=== PATIENT | male | born 1960 | race Caucasian/White ===

== ENCOUNTER → 2020-12-13 15:24 | Outpatient (BNVA) | payer BC, SELFPAY | PROVIDERS: PCP Internal Medicine; Visit Provider Urology ==

== ENCOUNTER → 2021-12-31 13:55 | Outpatient (BNVA) | payer OTHER, SELFPAY | PROVIDERS: PCP Internal Medicine; Visit Provider Urology | DX: N40.1 Benign prostatic hyperplasia with lower urinary tract symptoms (principal); N13.8 Other obstructive and reflux uropathy; R39.12 Poor urinary stream; N52.9 Male erectile dysfunction, unspecified | CPT/HCPCS: 51798; 99212 ==

== ENCOUNTER 2023-03-11 08:28 | Outpatient (REF) | payer OTHER, SELFPAY ==
[2023-03-12 09:52] LABS: Urine Cytology See Pathology rpt
== END 2023-03-11 08:29 | disposition home or self-care (01) ==
LOC: HO.LAB 08:28
PROVIDERS: PCP Internal Medicine; Visit Provider Nurse Practitioner Family
DX: R31.29 Other microscopic hematuria (principal); R39.12 Poor urinary stream; N32.0 Bladder-neck obstruction; N52.9 Male erectile dysfunction, unspecified
CPT/HCPCS: 51798; 88112

== ENCOUNTER 2024-05-03 08:21 | Outpatient (AMB) | payer OTHER, SELFPAY ==
--- NOTE | 2024-05-03 08:28 | A.OFFVIS_ITS ---
Intake Visit Reasons: 1y/labs Intake Note: Patient presents for follow up on: Erectile Dysfunction, Weak Urinary System, and PSA lab results PSA Results: 1.98 Urology Medications: Terazosin, Tadalafil Antibiotic Allergy: None Blood Thinner: None PVR: 10ml's Microsoft Windows Engineer Required: No Accompanied by: Self / Same As Patient Allergies phenytoin [Dilantin] Allergy (Unknown, Verified 05/03/24 19:55) Unknown Medication List - Last Reconciled 05/03/24 by KWASI Lindo-ALANNAH atorvastatin 40 mg PO BEDTIME duloxetine 30 mg PO DAILY furosemide 20 mg PO DAILY latanoprost 0.005% 1 drp ophthalmic (eye) DAILY metoprolol succinate ER 25 mg PO DAILY metoprolol tartrate 25 mg PO DAILY tadalafil 10 - 20 mg PO DAILY PRN terazosin 5 mg PO BEDTIME 90 days HPI Comments Details: Blake is a pleasant 64-year-old male patient of . He presents to the office today for a follow up of his lower urinary tract symptoms and erectile dysfunction. When asked patient reports to be doing and feeling well. He reports compliance with terazosin 5 mg at bedtime as well as p.r.n. tadalafil for erectile dysfunction with good success. She discusses at times noting difficulty with initiation of stream when he has been sitting for long periods of time. However, he does not find this bothersome and is not consistent. He otherwise denies any bothersome urinary issues or concerns. In office urinalysis results reviewed with the patient today. Microscopic hematuria noted. PVR 10 mL. Recent PSA results reviewed with the patient today as noted and trended below: PSAs: 12/13 2.4, 12/15 2.0, 05/16 2.0 Discussed reasons for blood in the urine may include but are not limited to kidney stones, cancer in the urinary tract, BPH, kidney stone disease or inflammatory conditions of the urinary tract. Discussed further workup to include urine cytology, CT urogram, and in office cystoscopy evaluation. Patient with a previous hematuria workup with Dr. Matthews that was negative. When asked patient denies urinary urgency, incontinence, nocturia, hematuria, dysuria, foul smelling urine, flank pain, fever, and or chills. When asked he does report a previous smoking history however quit approximately 10+ years ago. Discusses risk versus benefits of microscopic hematuria workup. Patient declines at this time. Lower Urinary Tract Symptoms:? Terazosin 5 mg - not tolerate 10 mg ? Current visit is for?further evaluation of lower urinary tract symptoms, predominate obstructive symptoms ?- back surgery?December 2018 and again July 2022 spinal fusion - long-term spinal issues presumed? somatic. ? Results from testing include? cystoscopy: no abnormality seen No prostate issue. Marked? trabeculation in bladder ? renal/bladder us ?Yes Small? diverticulum bladder ? date ?04/06/2019 ? PVR? ?190 ? prostate size ?35 ? Prostate? volume?30-50gm PFSH Medical History Neurogenic bladder Benign prostatic hyperplasia with lower urinary tract symptoms Feeling of incomplete bladder emptying History of urinary hesitancy Weak urinary stream Review of Systems Const All systems reviewed & are unremarkable except as noted in HPI and below Reports no additional complaints Eyes Reports no additional complaints ENT Reports no additional complaints Card Reports no additional complaints Resp Reports no additional complaints GI Reports no additional complaints Reports as per HPI Musc Reports as per HPI Neuro Reports no additional complaints Psych Reports no additional complaints Endo Reports no additional complaints Justin/Lymph Reports no additional complaints Aller/Immun Reports no additional complaints Physical Exam Const General: cooperative, healthy appearing, comfortable, no acute distress, well developed, alert and awake Orientation/consciousness: patient oriented x3 Limitations: no limitations HEENT Head: Yes normal to inspection, Yes normocephalic and Yes atraumatic Ears: hearing grossly normal bilaterally Eyes General: appearance normal, both eyes and all related structures Neck Neck: Yes normal visual inspection and Yes trachea midline Chest Chest palpation & inspection: normal inspection of the chest Resp Effort & Inspection: normal respiratory effort and able to speak in complete sentences Cardio Rate: regular rate GI Inspection: Yes normal to inspection General: Yes no CVA tenderness Back/Spine/Pelvis Back: no CVA tenderness Skin General skin exam: no rashes or lesions noted Neuro General: patient oriented x3 Extrem General: Yes normal to inspection Psych Appearance: grossly normal and well kempt Mental Status: mental status grossly normal Speech and movement: Normal speech and movement present and Clear speech present Affect: normal affect Attitude: cooperative Thought process: Normal thought process present Thought content: Normal thought content present Insight: Fair insight present (Psych) Judgement: Fair judgement present (Psych) Office Procedures Post Void Residual Post Residual Void Post Void Residual (PVR): 10 [id number] Void Residual by ultrasound Results AMB Urinalysis, Automated UA Leukoctes 0 Eloisa/uL Last Edit by [employer]livier Taveras on 05/03/24 08:51 UA Nitrite Negative Last Edit by [employer] on 05/03/24 08:51 UA Urobilinogen 0.2 mg/dL Last Edit by [employer] on 05/03/24 08:51 UA Protein 0 mg/dL Last Edit by [employer] on 05/03/24 08:51 UA pH 6.0 Last Edit by [employer] on 05/03/24 08:51 UA Blood 80 Shane/uL Last Edit by [employer] on 05/03/24 08:51 UA Specific [place] 1.020 Last Edit by [employer] on 05/03/24 08:51 UA Ketone Negative Last Edit by [employer] on 05/03/24 08:51 UA Bilirubin 0 mg/dL Last Edit by [employer] on 05/03/24 08:51 UA Glucose 0 mg/dL Last Edit by [employer] on 05/03/24 08:51 Results Reviewed Results Reviewed: Laboratory Last Values Urine pH (Auto) 6.0 05/03/24 08:35 Specific [place] (Auto) 1.020 05/03/24 08:35 Urine Protein (Auto) 0 mg/dL 05/03/24 08:35 Glucose (UA)(Auto) 0 mg/dL 05/03/24 08:35 Urine Ketones (Auto) Negative 05/03/24 08:35 Urine Blood (Auto) 80 Shane/uL 05/03/24 08:35 Urine Nitrite (Auto) Negative 05/03/24 08:35 Urine Bilirubin (Auto) 0 mg/dL 05/03/24 08:35 Urine Urobilinogen (Auto) 0.2 mg/dL 05/03/24 08:35 Leukocyte Esterase (Auto) 0 Eloisa/uL 05/03/24 08:35 Assessment & Plan Assessment & Plan (1) Bladder outlet obstruction: Code(s): N32.0 - Bladder-neck obstruction Category: Medical (2) Weak urinary stream: Code(s): R39.12 - Poor urinary stream Category: Medical Plan In office urinalysis results reviewed with the patient today; as noted above; will send for urine cytology. Patient reports to be happy with his current voiding parameters. Recent PSA results reviewed with the patient; as noted above. Continue terazosin 5 mg daily. Continue tadalafil PRN. Patient currently denies any bothersome urinary issues or concerns. Discussed at length potential causes of microscopic hematuria and further workup; risks and benefits of these interventions were discussed at length; patient declines at this time. Will obtain PSA in one year. Follow-up in 1 year with PSA to be completed prior; or sooner with any issues, concerns, and or questions. Orders: Orders AMB Urinalysis Automated Today Z13.9 - Encounter for screening, unspecified AMB Post Void Residual by ultrasound Today R39.12 - Poor urinary stream Urine Cytology Today Z13.9 - Encounter for screening, unspecified Prostate Specific Antigen 1 Year N32.0 - Bladder-neck obstruction, R39.12 - Poor urinary stream Patient Instructions: The patient had an opportunity to ask questions regarding the treatment plan. All questions were answered. Physical exam, labs, and imaging were discussed and reviewed in detail. As well as risks, benefits, and discussion of treatment choices. No major barriers to understanding were identified. The patient expressed understanding and agreement with the above treatment plan. The patient was made aware they should contact our office by phone for worsening of their current condition, the appearance of new symptoms, or with any questions or concerns. Compliance is encouraged with any medications and follow up testing that is ordered. It is a privilege to be allowed the opportunity to participate in? your urological care.? Again, if you have any questions or concerns If you have any questions or concerns please do not hesitate to contact me. The office is [phone]. This note is constructed using voice recognition software. While every effort has been made to ensure accuracy marine underwriter errors may have been included. Yours sincerely, RUDY Lindo Coding Level of Care Code Est Pt Level 3 (57313) Diagnoses Bladder outlet obstruction N32.0 Weak urinary stream R39.12 CPT Codes Post Residual Void - PVR CPT Code: 15417-Mgqj Void Residual by ultrasound ([id number])
== END 2024-05-03 09:06 | disposition home or self-care (01) ==
PROVIDERS: Visit Provider Nurse Practitioner Family
DX: N32.0 Bladder-neck obstruction (principal); R39.12 Poor urinary stream; Z13.9 Encounter for screening, unspecified
CPT/HCPCS: 99213

== ENCOUNTER 2024-05-03 08:21 | Outpatient (REF) | payer OTHER, SELFPAY ==
[2024-05-03 17:08] LABS: Urine Cytology See Pathology rpt
== END 2024-05-03 08:22 | disposition home or self-care (01) ==
LOC: HO.LNP 08:21
PROVIDERS: Visit Provider Nurse Practitioner Family
DX: Z13.9 Encounter for screening, unspecified (principal)
CPT/HCPCS: 51798; 81003; 88112

== ENCOUNTER 2025-05-03 08:57 | Outpatient (REF) | payer OTHER, SELFPAY ==
[2025-05-03 17:05] LABS: Urine Cytology See Pathology rpt
== END 2025-05-03 08:58 | disposition home or self-care (01) ==
LOC: HO.LAB 08:57
PROVIDERS: PCP Internal Medicine; Visit Provider Nurse Practitioner Family
DX: R31.29 Other microscopic hematuria (principal); N32.0 Bladder-neck obstruction; R39.12 Poor urinary stream
CPT/HCPCS: 81003; 88112

== ENCOUNTER 2025-05-03 08:57 | Outpatient (AMB) | payer OTHER, SELFPAY ==
--- NOTE | 2025-05-03 09:02 | MHC.OFFVIS ---
Intake Visit Reasons: 1yr/PSA/PVR Intake Note: Patient presents for a 1 year follow up on: PSA/PVR PSA Results: 2.45 Urology Medications: Terazosin, Tadalafil Antibiotic Allergy: None Blood Thinner: None PVR: 189ml Consultant Required: No Accompanied by: Self / Same As Patient Allergies phenytoin [Dilantin] Allergy (Unknown, Verified 05/03/25 09:37) Unknown Medication List - Last Reconciled 05/03/25 by KWASI Lindo- atorvastatin 40 mg PO BEDTIME duloxetine 30 mg PO DAILY furosemide 20 mg PO DAILY latanoprost 0.005% 1 drp ophthalmic (eye) DAILY metoprolol succinate ER 25 mg PO DAILY tadalafil 10 - 20 mg PO DAILY PRN terazosin 5 mg PO BEDTIME 90 days HPI Comments Details: Blake is a pleasant 65-year-old male patient of . He presents to the office today for a follow up of his lower urinary tract symptoms and erectile dysfunction. When asked patient reports to be doing and feeling well. He reports compliance with terazosin 5 mg at bedtime as well as p.r.n. tadalafil for erectile dysfunction with good success. He discusses at times noting difficulty with initiation of stream when he has been sitting for long periods of time. However, he does not find this bothersome and it is not consistent. He otherwise denies any bothersome urinary issues or concerns. In office urinalysis results reviewed with the patient today. Microscopic hematuria noted. PVR 189mL. Recent PSA results reviewed with the patient today as noted and trended below: PSAs: 12/13 2.4, 12/15 2.0, 05/16 2.0, 04/16 2.5 Discussed reasons for blood in the urine may include but are not limited to kidney stones, cancer in the urinary tract, BPH, kidney stone disease or inflammatory conditions of the urinary tract. Discussed further workup to include urine cytology, CT urogram, and in office cystoscopy evaluation. Patient with a previous hematuria workup with Dr. Matthews that was negative. When asked patient denies urinary urgency, incontinence, nocturia, hematuria, dysuria, foul smelling urine, flank pain, fever, and or chills. When asked he does report a previous smoking history however quit approximately 12+ years ago. Discusses risk versus benefits of microscopic hematuria workup. Patient declines at this time. Lower Urinary Tract Symptoms:? Terazosin 5 mg - not tolerate 10 mg ? Current visit is for?further evaluation of lower urinary tract symptoms, predominate obstructive symptoms ?- back surgery?December 2018 and again July 2022 spinal fusion - long-term spinal issues presumed? somatic. ? Results from testing include? cystoscopy: no abnormality seen No prostate issue. Marked? trabeculation in bladder ? renal/bladder us ?Yes Small? diverticulum bladder ? date ?04/06/2019 ? PVR? ?190 ? prostate size ?35 ? Prostate? volume?30-50gm [facility] Medical History Neurogenic bladder Benign prostatic hyperplasia with lower urinary tract symptoms Feeling of incomplete bladder emptying History of urinary hesitancy Weak urinary stream Review of Systems Const All systems reviewed & are unremarkable except as noted in HPI and below Reports no additional complaints Eyes Reports no additional complaints ENT Reports no additional complaints Card Reports no additional complaints Resp Reports no additional complaints GI Reports no additional complaints Reports as per HPI Musc Reports as per HPI Neuro Reports no additional complaints Psych Reports no additional complaints Endo Reports no additional complaints Justin/Lymph Reports no additional complaints Aller/Immun Reports no additional complaints Physical Exam Const General: cooperative, healthy appearing, comfortable, no acute distress, well developed, alert and awake Orientation/consciousness: patient oriented x3 Limitations: no limitations HEENT Head: Yes normal to inspection, Yes normocephalic and Yes atraumatic Ears: hearing grossly normal bilaterally Eyes General: appearance normal, both eyes and all related structures Neck Neck: Yes normal visual inspection and Yes trachea midline Chest Chest palpation & inspection: normal inspection of the chest Resp Effort & Inspection: normal respiratory effort and able to speak in complete sentences Cardio Rate: regular rate GI Inspection: Yes normal to inspection General: Yes no CVA tenderness Back/Spine/Pelvis Back: no CVA tenderness Skin General skin exam: no rashes or lesions noted Neuro General: patient oriented x3 Extrem General: Yes normal to inspection Psych Appearance: grossly normal and well kempt Mental Status: mental status grossly normal Speech and movement: Normal speech and movement present and Clear speech present Affect: normal affect Attitude: cooperative Thought process: Normal thought process present Thought content: Normal thought content present Insight: Fair insight present (Psych) Judgement: Fair judgement present (Psych) Results AMB Urinalysis, Automated UA Leukoctes 0 Eloisa/uL Last Edit by Tamara Juan A on 05/03/25 09:10 UA Nitrite Negative Last Edit by Tamara Velazco on 05/03/25 09:10 UA Urobilinogen 17 mg/dL Last Edit by Crystal Velazco on 05/03/25 09:10 UA Protein 1 mg/dL Last Edit by Tamara Velazco on 05/03/25 09:10 UA pH 6.0 Last Edit by Tamara Velazco on 05/03/25 09:10 UA Blood 25 Shane/uL Last Edit by Tamara Velazco on 05/03/25 09:10 UA Specific [place] 1.015 Last Edit by Tamara Velazco on 05/03/25 09:10 UA Ketone Negative Last Edit by Tamara Velazco on 05/03/25 09:10 UA Bilirubin 0 mg/dL Last Edit by Tamara Velazco on 05/03/25 09:10 UA Glucose 0 mg/dL Last Edit by Tamara Velazco on 05/03/25 09:10 Results Reviewed Results Reviewed: Laboratory Last Values Urine pH (Auto) 6.0 05/03/25 07:41 Specific [place] (Auto) 1.015 05/03/25 07:41 Urine Protein (Auto) 1 mg/dL 05/03/25 07:41 Glucose (UA)(Auto) 0 mg/dL 05/03/25 07:41 Urine Ketones (Auto) Negative 05/03/25 07:41 Urine Blood (Auto) 25 Shane/uL 05/03/25 07:41 Urine Nitrite (Auto) Negative 05/03/25 07:41 Urine Bilirubin (Auto) 0 mg/dL 05/03/25 07:41 Urine Urobilinogen (Auto) 17 mg/dL 05/03/25 07:41 Leukocyte Esterase (Auto) 0 Eloisa/uL 05/03/25 07:41 Assessment & Plan Assessment & Plan (1) Microscopic hematuria: Code(s): R31.29 - Other microscopic hematuria Category: Medical (2) Bladder outlet obstruction: Code(s): N32.0 - Bladder-neck obstruction Category: Medical (3) Weak urinary stream: Code(s): R39.12 - Poor urinary stream Category: Medical Plan In office urinalysis results reviewed with the patient today; as noted above; will send for urine cytology. PVR 189ml's We did discuss incomplete bladder emptying and attempting to double void to assist. Will continue with surveillance monitoring of microscopic hematuria. Recent PSA results reviewed with the patient today; as noted above. Continue terazosin and p.r.n. Cialis as prescribed. Will obtain retroperitoneal ultrasound for further assessment evaluation. He reports be happy with current voiding parameters. He currently denies any bothersome urinary issues or concerns. Follow-up in 1 year with PSA, imaging, and PVR; or sooner with any issues, concerns, and or questions. Orders: Orders AMB Urinalysis Automated Today Z13.9 - Encounter for screening, unspecified AMB Post Void Residual by ultrasound Today R39.12 - Poor urinary stream Urine Cytology Today R31.29 - Other microscopic hematuria US retroperitoneal comp 1 Year N32.0 - Bladder-neck obstruction, R31.29 - Other microscopic hematuria, R39.12 - Poor urinary stream Prostate Specific Antigen 1 Year N32.0 - Bladder-neck obstruction, R31.29 - Other microscopic hematuria, R39.12 - Poor urinary stream Patient Instructions: The patient had an opportunity to ask questions regarding the treatment plan. All questions were answered. Physical exam, labs, and imaging were discussed and reviewed in detail. As well as risks, benefits, and discussion of treatment choices. No major barriers to understanding were identified. The patient expressed understanding and agreement with the above treatment plan. The patient was made aware they should contact our office by phone for worsening of their current condition, the appearance of new symptoms, or with any questions or concerns. Compliance is encouraged with any medications and follow up testing that is ordered. It is a privilege to be allowed the opportunity to participate in? your urological care.? Again, if you have any questions or concerns If you have any questions or concerns please do not hesitate to contact me. The office is [phone]. This note is constructed using voice recognition software. While every effort has been made to ensure accuracy rn float errors may have been included. Yours sincerely, Diya Castro, VOCATIONAL REHABILITATION TECHNICIAN-BC Coding Level of Care Code Est Pt Level 3 (94297) Complex EM visit Add On G2211 Diagnoses Microscopic hematuria R31.29 Bladder outlet obstruction N32.0 Weak urinary stream R39.12
--- OUTSIDE RECORDS SUMMARY | 2025-05-03 09:23 | XMS_ITS ---
Author Name [facility] Organization Unknown History of Medication Use Medication Directions Dispensed Refills Start Date End Date Stat us albuterol (PROVENTIL HFA; VENTOLIN HFA) 108 (90 Base) MCG/ACT inhaler Inhale 2 puffs every 4 (four) hours as needed for wheezing or shortness of breath. 10/01/2023 active metoPROLOL SUCCINATE (TOPROL-XL) 25 MG 24 hr tablet Take 25 mg by mouth daily. 05/17/2021 active atorvastatin (LIPITOR) 40 MG tablet 06/14/2020 active latanoprost (XALATAN) 0.005 % ophthalmic solution INT 1 GTT INTO OU QHS 06/06/2020 active terazosin (HYTRIN) 5 MG capsule TK 1 C PO QHS 06/06/2020 active tadalafil (Cialis) 10 MG tablet Take by mouth. active terazosin (capsule) 1 mg comp leted Problems Problem Status Onset Date Problem Type Date of Resolution Source Bronchospasm active EncounterDiagnosisAct CCT Diarrhea active 2021-11-05 ProblemAct [facility] Upper respiratory tract infection, unspecified type active EncounterDiagnosisAct CCT Lab test negative for COVID-19 virus active EncounterDiagnosisAct [facility] T Personal history of colonic polyps active 2021-11-05 ProblemAct CCT Periumbilical abdominal pain active 2021-11-05 ProblemAct CCT Encounters Encounter Type Encounter Reason Primary Diagnosis Location Date Ambulatory [email or web address] 12/02/2024 Ambulatory Acute upper respiratory infection, unspecified Acute upper respiratory infection, unspecified [facility] 10/01/2023 Ambulatory Abdominal Pain [facility] 11/05/2021 Care Team Organization Name Specialty Phone Email Start Date End [email or web address] 2024 [email or web address] 11/18/2024 [facility]HEUS YARBROUGH [facility] 11/05/2021 02/09/20 25 [facility] 11/05/2021 01/02/20 22
== END 2025-05-03 09:36 | disposition home or self-care (01) ==
LOC: HO.HUSH 08:57
PROVIDERS: PCP Internal Medicine; Visit Provider Nurse Practitioner Family
DX: R31.29 Other microscopic hematuria (principal); N32.0 Bladder-neck obstruction; R39.12 Poor urinary stream; Z13.9 Encounter for screening, unspecified
CPT/HCPCS: 99213; G2211